=== PATIENT | female | born 1995 | race Caucasian/White ===

== ENCOUNTER 2018-11-25 07:14 | Emergency (ER) | payer SELFPAY ==
--- OUTSIDE RECORDS SUMMARY | 2018-11-25 07:23 | XMS REPORT ---
:1995 [facility] Address [address] [place] [address] Dr. Chavez. [address] [place] [id number] Care Team Providers Name Role Phone Unavailable Unavailable Unavailable Problems This patient has no known problems. Allergies, Adverse Reactions, Alerts This patient has no known allergies or adverse reactions. Medications This patient has no known medications.
--- NOTE | 2018-11-25 07:35 | ER ---
Nurse's Notes [facility] Name: Delmy Lorenzo Age: 23 yrs Sex: Female : 1995 Arrival Date: 11/25/2018 Time: 07:17 Bed 19 Private MD: Diagnosis: Rash and other nonspecific skin eruption Presentation: 11/25 07:26 Presenting complaint: Patient states: itchy rash on stomach, chest and left arm that em started 2 weeks after playing with wild pigs, also reports being 4 and half months . Transition of care: patient was not received from another setting of care. Onset of symptoms was November 11, 2018. Risk Assessment: Do you want to hurt yourself or someone else? Patient reports no desire to harm self or others. Initial Sepsis Screen: Does the patient meet any 2 criteria? No. Patient's initial sepsis screen is negative. Does the patient have a suspected source of infection? No. Patient's initial sepsis screen is negative. Care prior to arrival: None. 07:26 Method Of Arrival: Ambulatory em 07:31 Acuity: SVETA 5 iw Historical: - Allergies: 07:29 NKDA; em - Home Meds: 07:29 None [Active]; em - PMHx: 07:29 None; em - PSHx: 07:29 None; em - Immunization history:: Adult Immunizations up to date. - Social history:: Smoking status: Patient/guardian denies using tobacco. - Ebola Screening: : Patient negative for fever greater than or equal to 101.5 degrees Fahrenheit, and additional compatible Ebola Virus Disease symptoms Patient denies exposure to infectious person Patient denies travel to an Ebola-affected area in the 21 days before illness onset No symptoms or risks identified at this time. Screenin:30 Abuse screen: Denies threats or abuse. Nutritional screening: No deficits noted. em Tuberculosis screening: No symptoms or risk factors identified. Fall Risk None identified. Assessment: 07:29 General: Appears in no apparent distress. comfortable, Behavior is calm, cooperative, em Denies fever. Pain: Denies pain. Neuro: Level of Consciousness is awake, alert, obeys commands, Oriented to person, place, time, situation. Cardiovascular: Capillary refill < 3 seconds Patient's skin is warm and dry. Respiratory: Airway is patent Respiratory effort is even, unlabored, Respiratory pattern is regular, symmetrical. GI: Abdomen is flat, Patient currently denies nausea, vomiting. Derm: Skin is intact, is healthy with good turgor, Rash noted that is macular, itchy, on left arm and abdomen. Musculoskeletal: Capillary refill < 3 seconds, Range of motion: intact in all extremities. Vital Signs: 07:29 BP 102 / 78; Pulse 74; Resp 16; Pulse Ox 100% on R/A; Weight 51.71 kg; Height 5 ft. 1 em in. (154.94 cm); Pain 0/10; 07:29 Body Mass Index 21.54 (51.71 kg, 154.94 cm) em ED Course: 07:17 Patient arrived in ED. as 07:20 Darian Presley MD is Attending Physician. 07:26 Kenji Holm LVN is Primary Nurse. em 07:29 Arm band placed on. em 07:30 Patient has correct armband on for positive identification. Bed in low position. Call em light in reach. 07:31 Triage completed. iw 07:46 No provider procedures requiring assistance completed. Patient did not have IV access em during this emergency room visit. Administered Medications: No medications were administered Outcome: 07:34 Discharge ordered by . gs 07:46 Discharged to home ambulatory. em 07:46 Condition: good 07:46 Discharge instructions given to patient, Instructed on discharge instructions, follow up and referral plans. medication usage, Demonstrated understanding of instructions, follow-up care, medications, Prescriptions given X 1. 07:48 Patient left the ED. em Signatures: Kenji Holm LVN LVN em Patrizia Beavers as Melanie aSlazar, YO RN Darian Presley MD MD
--- NOTE | 2018-11-25 07:36 | EDPHYS ---
Physician Documentation [facility] Name: Delmy Lorenzo Age: 23 yrs Sex: Female : 1995 Arrival Date: 11/25/2018 Time: 07:17 Bed 19 Private MD: ED Physician Darian Presley HPI: 11/25 07:32 This 23 yrs old Female presents to ER via Ambulatory with complaints of Rash. gs 07:32 The rash is located on the body diffusely. The rash can be described as papular, gs urticarial. Onset: The symptoms/episode began/occurred 2 week(s) ago. Associated signs and symptoms: Pertinent positives: itching, Pertinent negatives: fever, nausea. Severity of symptoms: At their worst the symptoms were moderate in the emergency department the symptoms have improved mildly. The patient has experienced a previous episode. Historical: - Allergies: 07:29 NKDA; em - Home Meds: 07:29 None [Active]; em - PMHx: :29 None; em - PSHx: 07:29 None; em - Immunization history:: Adult Immunizations up to date. - Social history:: Smoking status: Patient/guardian denies using tobacco. - Ebola Screening: : Patient negative for fever greater than or equal to 101.5 degrees Fahrenheit, and additional compatible Ebola Virus Disease symptoms Patient denies exposure to infectious person Patient denies travel to an Ebola-affected area in the 21 days before illness onset No symptoms or risks identified at this time. ROS: 07:32 All other systems are negative. gs Exam: 07:32 Head/Face: Normocephalic, atraumatic. Eyes: Pupils equal round and reactive to light, gs extra-ocular motions intact. Lids and lashes normal. Conjunctiva and sclera are non-icteric and not injected. Cornea within normal limits. Periorbital areas with no swelling, redness, or edema. ENT: Nares patent. No nasal discharge, no septal abnormalities noted. Tympanic membranes are normal and external auditory canals are clear. Oropharynx with no redness, swelling, or masses, exudates, or evidence of obstruction, uvula midline. Mucous membranes moist. Neck: Trachea midline, no thyromegaly or masses palpated, and no cervical lymphadenopathy. Supple, full range of motion without nuchal rigidity, or vertebral point tenderness. No Meningismus. Chest/axilla: Normal chest wall appearance and motion. Nontender with no deformity. No lesions are appreciated. Cardiovascular: Regular rate and rhythm with a normal S1 and S2. No gallops, murmurs, or rubs. Normal PMI, no JVD. No pulse deficits. Respiratory: Lungs have equal breath sounds bilaterally, clear to auscultation and percussion. No rales, rhonchi or wheezes noted. No increased work of breathing, no retractions or nasal flaring. Abdomen/GI: Soft, non-tender, with normal bowel sounds. No distension or tympany. No guarding or rebound. No evidence of tenderness throughout. Back: No spinal tenderness. No costovertebral tenderness. Full range of motion. MS/ Extremity: Pulses equal, no cyanosis. Neurovascular intact. Full, normal range of motion. Neuro: Awake and alert, GCS 15, oriented to person, place, time, and situation. Cranial nerves II-XII grossly intact. Motor strength 5/5 in all extremities. Sensory grossly intact. Cerebellar exam normal. Normal gait. 07:32 Constitutional: The patient appears alert, awake. 07:32 Skin: rash a mild rash is noted, rash can be described as papular, on the abdomen, right arm and left arm. Vital Signs: 07:29 BP 102 / 78; Pulse 74; Resp 16; Pulse Ox 100% on R/A; Weight 51.71 kg; Height 5 ft. 1 em in. (154.94 cm); Pain 0/10; 07:29 Body Mass Index 21.54 (51.71 kg, 154.94 cm) em MDM: 07:32 Patient medically screened. 07:32 Differential diagnosis: allergic reaction. Data reviewed: vital signs, nurses notes. gs Counseling: I had a detailed discussion with the patient and/or guardian regarding: the historical points, exam findings, and any diagnostic results supporting the discharge/admit diagnosis, the need for outpatient follow up. Response to treatment: There is no appreciated change of the patient's symptoms at this time. Administered Medications: No medications were administered Disposition: 11/25/18 07:34 Discharged to Home. Impression: Rash and other nonspecific skin eruption. - Condition is Stable. - Discharge Instructions: Rash, [id number]. - Prescriptions for Benadryl 25 mg Oral Capsule - take 1 capsule by ORAL route every 6 hours As needed; 30 tablet. - Medication Reconciliation Form, Thank You Letter, Antibiotic Education, Prescription Opioid Use form. - Follow up: Private Physician; When: 2 - 3 days; Reason: Re-evaluation by your physician. Signatures: Kenji Holm LVN LVN em Starr, Gregory, MD MD gs Corrections: (The following items were deleted from the chart) 07:48 07:34 11/25/2018 07:34 Discharged to Home. Impression: Rash and other nonspecific skin em eruption. Condition is Stable. Forms are Medication Reconciliation Form, Thank You Letter, Antibiotic Education, Prescription Opioid Use. Follow up: Private Physician; When: 2 - 3 days; Reason: Re-evaluation by your physician. gs
[2018-11-25 07:54] VITALS: BP 102/78; O2SAT 100
== END 2018-11-25 07:48 | disposition home or self-care (01) ==
LOC: ER 07:14
DX: R21 Rash and other nonspecific skin eruption (principal)
CPT/HCPCS: 99281

== ENCOUNTER 2019-05-11 08:22 | Emergency (ER) | payer OTHER, SELFPAY ==
--- OUTSIDE RECORDS SUMMARY | 2019-05-11 08:24 | XMS REPORT ---
:1995 [facility] Address [address] [place] [address] Dr. Chavez[address] [place] [address] Care Team Providers Name Role Phone Unavailable Unavailable Unavailable Problems This patient has no known problems. Allergies, Adverse Reactions, Alerts This patient has no known allergies or adverse reactions. Medications This patient has no known medications.
[2019-05-11 10:11] LABS: Absolute Lymphocytes (CBC) 1.5 K/uL (0.7-4.9); Basophils % 0.9 % (0-1.3); Hematocrit 37.3 % (36.0-45.0); Lymphocytes % 26.6 % (15.3-44.8); MPV 7.9 fL (7.6-11.3); RBC Red Blood Cell Count 4.16 M/uL (3.86-4.86)
[2019-05-11 10:28] LABS: ALT/SGPT 25 U/L (12-78); AST/SGOT 17 U/L (15-37); Albumin 3.9 g/dL (3.4-5.0); Alkaline Phosphatase 58 U/L (45-117); BUN Blood Urea Nitrogen 14 mg/dL (7-18); Bicarbonate 27 mmol/L (21-32); Bilirubin Direct 0.1 mg/dL (0-0.2); Bilirubin Total 0.5 mg/dL (0.2-1.0); Glucose Level 109 mg/dL (74-106); Lipase 153 U/L (73-393); Potassium 3.7 mmol/L (3.5-5.1); Protein, Total 7.2 g/dL (6.4-8.2); Sodium Level 140 mmol/L (136-145)
[2019-05-11 10:53] LABS: Urine Blood NEGATIVE (NEG); Urine Glucose NEGATIVE (NEG); Urine Protein NEGATIVE (NEG); Urine Specific Gravity 1.025 (1.005-1.030); Urine pH 6.5 (5.0-7.0)
--- NOTE | 2019-05-11 12:09 | RAD REPORT ---
EXAM DESCRIPTION: CT - Abdomen Pelvis W Contrast - 05/11/2019 11:51 am CLINICAL HISTORY: Abdominal pain COMPARISON: 2015 TECHNIQUE: Computed axial tomography of the abdomen pelvis was obtained. 100 cc Isovue-300 was admin istered intravenously. Oral contrast was not requested which limits evaluation of bowel. All CT scans are performed using dose optimization technique as appropriate and may include automated exposure control or mA/KV adjustment according to patient size. FINDINGS: The liver, spleen, pancreas, adrenal and kidneys appear unremarkable. There is no evidence of diverticulitis. Normal appendix 25 millimeter right ovarian cyst without significant free fluid IMPRESSION: 25 millimeter right ovarian cyst without significant free fluid .
--- NOTE | 2019-05-11 12:25 | ER ---
Nurse's Notes [facility] Name: Delmy Lorenzo Age: 23 yrs Sex: Female : 1995 Arrival Date: 05/11/2019 Time: 08:25 Bed 16 Private MD: Diagnosis: Abdominal and pelvic pain;Left Flank Pain;Right Ovarian cyst Presentation: 05/11 08:40 Presenting complaint: Patient states: L low back pain that began 4 days ago as an ache ss and is now hurting worse. No known injury. Pain is worse with repositioning. Transition of care: patient was not received from another setting of care. Onset of symptoms was May 05, 2019. Risk Assessment: Do you want to hurt yourself or someone else? Patient reports no desire to harm self or others. Initial Sepsis Screen: Does the patient meet any 2 criteria? No. Patient's initial sepsis screen is negative. Does the patient have a suspected source of infection? No. Patient's initial sepsis screen is negative. Care prior to arrival: None. 08:40 Method Of Arrival: Ambulatory ss 08:40 Acuity: SVETA 4 ss Triage Assessment: 08:40 General: Appears in no apparent distress. uncomfortable, slender, Behavior is bp cooperative, appropriate for age, anxious. Pain: Complains of pain in back. EENT: No deficits noted. Neuro: No deficits noted. Cardiovascular: No deficits noted. Respiratory: No deficits noted. GI: No signs and/or symptoms were reported involving the gastrointestinal system. : No signs and/or symptoms were reported regarding the genitourinary system. Derm: No deficits noted. Musculoskeletal: Circulation, motion, and sensation intact. Range of motion: intact in all extremities. 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 - Social history:: Smoking status: Patient uses tobacco products, denies chronic smoking, but will smoke occasionally. - Ebola Screening: : Patient denies exposure to infectious person Patient denies travel to an Ebola-affected area in the 21 days before illness onset. Screenin:04 Abuse screen: Denies threats or abuse. Denies injuries from another. Nutritional bp screening: No deficits noted. Tuberculosis screening: No symptoms or risk factors identified. Fall Risk None identified. Assessment: 10:04 General: SEE TRIAGE NOTE. Neuro: No deficits noted. bp 11:09 Reassessment: CT PENDING, NO ACUTE S/S OF DISTRESS. bp 11:44 Reassessment: PT TO CT WITH STONE SPREADER OPERATOR. bp 13:01 Reassessment: PT D/C HOME AMBULATORY, DX WITH MUSCULOSKELETAL PAIN AND R OVARIAN CYST. bp Vital Signs: 08:42 BP 121 / 85; Pulse 73; Resp 15; Temp 97.8(TE); Pulse Ox 100% on R/A; Weight 49.9 kg; ss Height 5 ft. 2 in. (157.48 cm); Pain 0/10; 11:08 BP 104 / 68; Pulse 88; Resp 16; Pulse Ox 98% ; bp 13:01 BP 99 / 62; Pulse 58; Resp 16; Temp 98; Pulse Ox 100% ; bp 08:42 Body Mass Index 20.12 (49.90 kg, 157.48 cm) ED Course: 08:25 Patient arrived in ED. rg4 08:42 Triage completed. ss 08:42 Arm band placed on right wrist. ss 09:30 Chandrakant Cai MD is Attending Physician. kdr 09:33 Indio Alves, YO is Primary Nurse. bp 09:59 Initial lab(s) drawn, by ri, sent to lab. Inserted saline lock: 20 gauge in right em1 antecubital area, using aseptic technique. Blood collected. 10:04 Patient has correct armband on for positive identification. Bed in low position. Call bp light in reach. Side rails up X2. 11:59 CT Abd/Pelvis - IV Contrast Only In Process Unspecified. EDMS 13:01 No provider procedures requiring assistance completed. IV discontinued, intact, bp bleeding controlled, No redness/swelling at site. Pressure dressing applied. Administered Medications: No medications were administered Outcome: 12:22 Discharge ordered by . kdr 13:01 Discharged to home ambulatory. bp 13:01 Condition: stable 13:01 Discharge instructions given to patient, Instructed on discharge instructions, follow up and referral plans. medication usage, Demonstrated understanding of instructions, follow-up care, medications, Prescriptions given X 2. 13:03 Patient left the ED. bp Signatures: Dispatcher [employer] EDMS Chandrakant Cai MD MD kdr Martinez, Eric em1 Darlene Renae, YO RN Essence Tidwell 4 Indio Alves, YO RN bp
--- NOTE | 2019-05-11 12:25 | EDPHYS ---
Physician Documentation [facility] Name: Delmy Lorenzo Age: 23 yrs Sex: Female : 1995 Arrival Date: 05/11/2019 Time: 08:25 Bed 16 Private MD: ED Physician Chandrakant Cai HPI: 05/11 15:16 This 23 yrs old Female presents to ER via Ambulatory with complaints of Back kdr Pain. 15:16 The symptoms are located in the low back, low back area and left low back. Onset: The kdr symptoms/episode began/occurred gradually, 4 day(s) ago. The pain does not radiate. Associated signs and symptoms: Pertinent positives: Pertinent negatives: abdominal pain, dysuria, fever, headache, hematuria, incontinence, nausea, numbness, tingling, urinary retention, vomiting, weakness. The problem was sustained from unknown cause. Modifying factors: The patient symptoms are alleviated by nothing, the patient symptoms are aggravated by coughing, lifting, movement, nothing, running out of pain medications. Severity of symptoms: At their worst the symptoms were mild, in the emergency department the symptoms are unchanged. The patient has experienced a previous episode. The patient has not recently seen a physician. 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 - Social history:: Smoking status: Patient uses tobacco products, denies chronic smoking, but will smoke occasionally. - Ebola Screening: : Patient denies exposure to infectious person Patient denies travel to an Ebola-affected area in the 21 days before illness onset. ROS: 15:16 Constitutional: Negative for fever, chills, and weight loss, Eyes: Negative for injury, kdr pain, redness, and discharge, ENT: Negative for injury, pain, and discharge, Neck: Negative for injury, pain, and swelling, Cardiovascular: Negative for chest pain, palpitations, and edema, Respiratory: Negative for shortness of breath, cough, wheezing, and pleuritic chest pain, Abdomen/GI: Negative for abdominal pain, nausea, vomiting, diarrhea, and constipation, : Negative for injury, bleeding, discharge, and swelling, MS/Extremity: Negative for injury and deformity, Skin: Negative for injury, rash, and discoloration, Neuro: Negative for headache, weakness, numbness, tingling, and seizure activity. Psych: Negative for depression, anxiety, suicide ideation, homicidal ideation, and hallucinations, Allergy/Immunology: Negative for hives, rash, and allergies, Endocrine: Negative for neck swelling, polydipsia, polyuria, polyphagia, and marked weight changes, Hematologic/Lymphatic: Negative for swollen nodes, abnormal bleeding, and unusual bruising. 15:16 Back: Positive for pain with movement, radiated pain, of the left low back, Negative for pain at rest. Exam: 15:16 Constitutional: This is a well developed, well nourished patient who is awake, alert, kdr and in no acute distress. Head/Face: Normocephalic, atraumatic. Eyes: Pupils equal round and reactive to light, extra-ocular motions intact. Lids and lashes normal. Conjunctiva and sclera are non-icteric and not injected. Cornea within normal limits. Periorbital areas with no swelling, redness, or edema. Neck: Trachea midline, no thyromegaly or masses palpated, and no cervical lymphadenopathy. Supple, full range of motion without nuchal rigidity, or vertebral point tenderness. No Meningismus. Chest/axilla: Normal chest wall appearance and motion. Nontender with no deformity. No lesions are appreciated. Cardiovascular: Regular rate and rhythm with a normal S1 and S2. No gallops, murmurs, or rubs. Normal PMI, no JVD. No pulse deficits. Respiratory: Lungs have equal breath sounds bilaterally, clear to auscultation and percussion. No rales, rhonchi or wheezes noted. No increased work of breathing, no retractions or nasal flaring. Abdomen/GI: Soft, non-tender, with normal bowel sounds. No distension or tympany. No guarding or rebound. No evidence of tenderness throughout. Back: No spinal tenderness. No costovertebral tenderness. Full range of motion. Skin: Warm, dry with normal turgor. Normal color with no rashes, no lesions, and no evidence of cellulitis. MS/ Extremity: Pulses equal, no cyanosis. Neurovascular intact. Full, normal range of motion. Neuro: Awake and alert, GCS 15, oriented to person, place, time, and situation. Cranial nerves II-XII grossly intact. Motor strength 5/5 in all extremities. Sensory grossly intact. Cerebellar exam normal. Normal gait. Psych: Awake, alert, with orientation to person, place and time. Behavior, mood, and affect are within normal limits. Vital Signs: 08:42 BP 121 / 85; Pulse 73; Resp 15; Temp 97.8(TE); Pulse Ox 100% on R/A; Weight 49.9 kg; ss Height 5 ft. 2 in. (157.48 cm); Pain 0/10; 11:08 BP 104 / 68; Pulse 88; Resp 16; Pulse Ox 98% ; bp 13:01 BP 99 / 62; Pulse 58; Resp 16; Temp 98; Pulse Ox 100% ; bp 08:42 Body Mass Index 20.12 (49.90 kg, 157.48 cm) ss MDM: 12:22 Patient medically screened. kdr 15:16 Data reviewed: vital signs, nurses notes, lab test result(s), radiologic studies. kdr Counseling: I had a detailed discussion with the patient and/or guardian regarding: the historical points, exam findings, and any diagnostic results supporting the discharge/admit diagnosis, lab results, radiology results, the need for outpatient follow up. 05/11 09:44 Order name: Basic Metabolic Panel; Complete Time: 10:47 kdr 05/11 09:44 Order name: CBC with Diff; Complete Time: 10:47 kdr 05/11 09:44 Order name: Creatinine for Radiology; Complete Time: 10:47 kdr 05/11 09:44 Order name: Hepatic Function; Complete Time: 10:47 kdr 05/11 09:44 Order name: Lipase; Complete Time: 10:47 kdr 05/11 09:48 Order name: Urine Dipstick--Ancillary (enter results); Complete Time: 11:32 eb 05/11 09:44 Order name: IV Saline Lock; Complete Time: 09:59 kdr 05/11 09:44 Order name: Labs collected and sent; Complete Time: 09:59 kdr 05/11 09:44 Order name: CT Abd/Pelvis - IV Contrast Only kdr 05/11 09:44 Order name: Urine Dipstick-Ancillary (obtain specimen); Complete Time: 09:59 kdr 05/11 09:44 Order name: Urine Test (obtain specimen); Complete Time: 09:59 kdr 05/11 09:48 Order name: Urine --Ancillary (enter results); Complete Time: 11:32 eb Administered Medications: No medications were administered Disposition: 05/11/19 12:22 Discharged to Home. Impression: Abdominal and pelvic pain, Left Flank Pain, Right Ovarian cyst. - Condition is Stable. - Discharge Instructions: Musculoskeletal Pain, Abdominal Pain, Adult, [id number], Flank Pain, [id number]. - Prescriptions for Cyclobenzaprine 10 mg Oral Tablet - take 1 tablet by ORAL route every 8 hours As needed; 15 tablet. Tramadol 50 mg Oral Tablet - take 1 tablet by ORAL route every 8 hours as needed; 16 tablet. - Medication Reconciliation Form, Thank You Letter, Prescription Opioid Use form. - Follow up: Private Physician; When: 2 - 3 days; Reason: If symptoms return, Further diagnostic work-up, Recheck today's complaints, Continuance of care, Re-evaluation by your physician. - Problem is new. - Symptoms have improved. Signatures: Dispatcher [employer] EDMS Chandrakant Cai MD MD kdr Darlene Renae RN RN ss Indio Alves RN RN bp Corrections: (The following items were deleted from the chart) 13:03 12:22 05/11/2019 12:22 Discharged to Home. Impression: Abdominal and pelvic pain; Left bp Flank Pain; Right Ovarian cyst. Condition is Stable. Forms are Medication Reconciliation Form, Thank You Letter, Antibiotic Education, Prescription Opioid Use. Follow up: Private Physician; When: 2 - 3 days; Reason: If symptoms return, Further diagnostic work-up, Recheck today's complaints, Continuance of care, Re-evaluation by your physician. Problem is new. Symptoms have improved. kdr
[2019-05-11 13:19] VITALS: BP 99/62; TEMP 98; O2SAT 100
== END 2019-05-11 13:03 | disposition home or self-care (01) ==
LOC: ER 08:22
DX: N83.201 Unspecified ovarian cyst, right side (principal); R10.9 Unspecified abdominal pain; Z72.0 Tobacco use
CPT/HCPCS: 36415; 74177; 80048; 80076; 81003; 81025; 83690; 85025; 99284; Q9967

== ENCOUNTER 2020-03-10 15:37 | Emergency (ER) | payer OTHER, SELFPAY ==
--- OUTSIDE RECORDS SUMMARY | 2020-03-10 15:39 | XMS REPORT | Continuity of Care Document ---
:[address] [facility] Address [address] [place] [address] Dr. Ha [address] [place] [id number] Care Team Providers Name Role Phone Unavailable Unavailable Unavailable Problems This patient has no known problems. Allergies, Adverse Reactions, Alerts This patient has no known allergies or adverse reactions. Medications This patient has no known medications. Procedures This patient has no known procedures. Results This patient has no known results.
[2020-03-10 16:40] LABS: Urine Blood NEGATIVE (NEG); Urine Glucose NEGATIVE (NEG); Urine Protein TRACE (NEG)
--- NOTE | 2020-03-10 16:47 | RAD REPORT ---
EXAM DESCRIPTION: CT - Head Brain Wo Cont - 03/10/2020 4:16 pm CLINICAL HISTORY: TRAUMA COMPARISON: Facial Bones W/ Mpr dated 03/10/2020 TECHNIQUE: Axial 5 mm thick images of the head were obtained without IV contrast. All CT scans are performed using dose optimization technique as appropriate and may include automated exposure control or mA/KV adjustment according to patient size. FINDINGS: No intracranial hemorrhage, mass, edema or shift of mid-line structures. No acute infarcti on changes seen. No abnormal extra-axial fluid collections. Ventricles are normal. Mastoid air cells are clear peer No acute bony findings. IMPRESSION: Negative non-contrast CT head examination. Facial bones, orbits and sinuses are separately detailed appear
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
--- NOTE | 2020-03-10 16:53 | RAD REPORT ---
EXAM DESCRIPTION: RAD - Hand Right 3 View - 03/10/2020 4:25 pm CLINICAL HISTORY: PAIN COMPARISON: Hand Right 3 View dated 10/13/2013 FINDINGS: No fracture is identified. There is no dislocation or periosteal reaction noted. No forei gn body or significant soft tissue abnormality. The glue on nail is missing from the digit. IMPRESSION: Negative right hand examination for fracture or significant finding. .
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
[2020-03-10 19:59] VITALS: TEMP 98
[2020-03-10 20:00] VITALS: O2SAT 99
[2020-03-10 20:05] VITALS: BP 129/99
== END 2020-03-10 19:41 | disposition home or self-care (01) ==
LOC: ER 15:37
PROC: 0NSBXZZ Reposition Nasal Bone, External Approach (ICD-10-PCS; principal; 2020-03-10)
DX: O9A.219 Injury, poisoning and certain other consequences of external causes complicating pregnancy, unspecified trimester (principal); S02.2XXA Fracture of nasal bones, initial encounter for closed fracture; Z3A.00 Weeks of gestation of pregnancy not specified; Y04.2XXA Assault by strike against or bumped into by another person, initial encounter; Y93.9 Activity, unspecified; Y92.89 Other specified places as the place of occurrence of the external cause
CPT/HCPCS: 36415; 70450; 70486; 76377; 81003; 81025; 84703; 99284

== ENCOUNTER 2020-11-06 00:37 | Inpatient (IN) | payer OTHER ==
[2020-11-06] MEDS ORDERED: PROMETHAZINE INJ 25 MG/ML AMP IM PRN (04:14)
[2020-11-06] MEDS ORDERED: BUTORPHANOL 1 MG/ML INJ IV PRN (04:14)
[2020-11-06] MEDS ORDERED: CARBOPROST TROME 250 MCG/ML IM PRN (04:14)
[2020-11-06] MEDS ORDERED: Ringers Lactate 1,000 ML IV PRN (04:14)
[2020-11-06] MEDS ORDERED: MEPERIDINE HCL 25 MG/ML SYR IV PRN (04:14)
[2020-11-06] MEDS ORDERED: METHYLERGONOVINE 0.2MG/ML AMP IM PRN (04:14)
--- OUTSIDE RECORDS SUMMARY | 2020-11-06 04:16 | XMS REPORT | Continuity of Care Document ---
:1995 Author Organization [facility] t Address [address] [place] [address] Dr. Ha [address] [place] [id number] Care Team Providers Name Role Phone Unavailable Unavailable Unavailable Problems This patient has no known problems. Allergies, Adverse Reactions, Alerts This patient has no known allergies or adverse reactions. Medications This patient has no known medications. Procedures This patient has no known procedures. Results This patient has no known results.
[2020-11-06] MEDS ORDERED: Ringers Lactate 1,000 ML IV SCH (05:00)
[2020-11-06] MEDS ORDERED: OXYTOCIN/LR 20 UNIT/1,000 ML BAG IV SCH ×2 (05:00→14:00)
[2020-11-06 05:09] LABS: Absolute Lymphocytes (CBC) 2.1 K/uL (0.7-4.9); Basophils % 0.5 % (0-1.3); Hematocrit 30.2 % (36.0-45.0); Lymphocytes % 19.1 % (15.3-44.8)
[2020-11-06 05:10] LABS: Urine Appearance CLOUDY (Clear); Urine Bilirubin NEGATIVE (Negative); Urine Blood NEGATIVE (Negative); Urine Color YELLOW (Yellow); Urine Glucose NEGATIVE (Negative); Urine Protein TRACE (Negative); Urine Specific Gravity 1.015 (1.005-1.030)
[2020-11-06 05:26] LABS: Urine Bacteria >50 /HPF (<20); Urine RBC NONE SEEN /HPF (NONE SEEN); Urine Urothelial Cells <5 /HPF (NONE SEEN)
[2020-11-06 05:54] VITALS: BMI 25.0
[2020-11-06] MEDS ORDERED: MAGNES/ALUMIN/SIMET 30ML UCUP PO PRN (07:02)
[2020-11-06] MEDS ORDERED: ROPIVACAINE HCL 0.2% 20ML AMP EP ONE (09:35)
[2020-11-06] MEDS ORDERED: FENTANYL CITR 100 MCG/2 ML IV ONE (09:35)
[2020-11-06] MEDS ORDERED: ROPIVACAINE HCL 100 ML EP ONE (10:51)
[2020-11-06] MEDS ORDERED: LIDOCAINE 1% 20 ML MDV ONE (11:07)
[2020-11-06] MEDS ORDERED: METHYLERGONOVINE 0.2MG/ML AMP IM ONE (11:09)
--- NOTE | 2020-11-06 11:36 | PREOPHP ---
Date of Admission: 11/06/2020 History Of Present Illness: Delmy Lorenzo is a 25-year-old primigravida, 39 weeks, Rh positive, immune to rubella. Negative COVID and negative strep, for induction. Pros and cons of this thoroughly dis cussed prior to admission. Family History: Not contributory. Allergies: SHE HAS NO ALLERGIES. Social History: She does not smoke. Medications: vitamins and iron prior to admission. Physical Examination: HEENT: Clear. Pupils equal, round, reactive to light and accommodation. Conjunctivae well perfused . No oral, lingual, or buccal lesions. Chest and Lung: Clear. Heart: Without murmurs, thrills, heaves, or rubs. Breasts: Without masses on previous visits. Abdomen: Term size. Baby is vertex. She is 2.5 cm, 50% effaced, still somewhat posterior. Rupture of membranes, clear f luid. Labor talk given. Baby looks good on the monitor. Anticipate more rapid progress once she ge ts to 5 cm. Full labor talk given. GILBERT/ALEXANDRE Voice ID: [id number]
[2020-11-06] MEDS ORDERED: DOCUSATE NA/SENNA CONC 1 TAB PO PRN (13:47)
[2020-11-06] MEDS ORDERED: Oxycodone HCl/Acetaminophen 1 TAB TAB PO PRN ×2 (13:47)
[2020-11-06] MEDS ORDERED: DIPHENHYDRAMINE 25 MG TAB/CAP PO PRN (13:47)
[2020-11-06] MEDS ORDERED: BISACODYL 10 MG RECTAL SUPP PR PRN (13:47)
[2020-11-06] MEDS ORDERED: ACETAMINOPHEN 500 MG TAB PO PRN (13:47)
[2020-11-06] MEDS ORDERED: CEFAZOLIN/SWI 2gm 2 GM/20 ML SYR ONE (14:05)
[2020-11-06] MEDS: METHYLERGONOVINE 0.2 MG TAB PO SCH ×3 (15:10→23:00)
[2020-11-06] MEDS: IBUPROFEN 600 MG TAB PO PRN ×2 (15:20→22:28)
[2020-11-06] MEDS ORDERED: METHYLERGONOVINE 0.2 MG TAB PO ONE (15:26)
--- NOTE | 2020-11-06 18:43 | PN ---
I evaluated this morning. The patient is now 4.5 cm, 70%. Cervix has come more anterior. She has e pidural and feeling quite comfortable at this point. Baby looks good. I think we are on the verge o f making more rapid progress from this point forward. GILBERT/ALEXANDRE Voice ID: [id number] Report ID: [id number]
--- NOTE | 2020-11-06 21:33 | OP ---
Surgeon: Niko Jackson MD Delmy Lorenzo is a 25-year-old 3, para 2, 39 weeks gestation, Rh positive, immune to rube lla, negative COVID, negative strep, 2.5 to 3 cm this morning on admission, elective induction. Pros and cons of this thoroughly discussed prior to admission. Rupture of membranes, clear fluid. The p atient received Stadol IV during the first stage of labor at approximately 4-5 cm requested and recei renee epidural anesthesia. Second stage of about 15 to 20 minutes. Spontaneous vaginal delivery of an 8 pounds male infant, Apgars 9 and 9. No episiotomy. No laceration. Retained placenta, which star cehri bleeding significantly. Therefore, manual removal was performed. The placenta was removed piece meal. Thorough uterine inspection. No retained products after final removal. 0.2 mg of Methergine IM, IV drip Pitocin, and 1 g of Ancef ordered for prophylaxis. Tolerated all procedures well. Estim ated blood loss 350 to 400 cc. Final Diagnoses: Term intrauterine at 39 weeks, labor induction, vaginal delivery, epidura l anesthesia, retained placenta, manual removal. Ancef for prophylaxis ordered. GILBERT/ALEXANDRE Voice ID: [id number] Report ID: [id number]
[2020-11-07] MEDS: METHYLERGONOVINE 0.2 MG TAB PO SCH (03:00)
[2020-11-07 03:42] LABS: RPR (Rapid Plasma Reagin) NON-REACT (NON-REACT)
[2020-11-07] MEDS ORDERED: Ringers Lactate 1,000 ML IV ONE (04:25)
[2020-11-07 11:57] VITALS: BP 120/65; TEMP 97.7
[2020-11-07] MEDS: IBUPROFEN 600 MG TAB PO PRN (15:05)
--- NOTE | 2020-11-07 21:34 | DS ---
Date of Discharge: 11/07/2020 Delmy Lorenzo is a 25-year-old female, 3, para 2, 39 weeks gestation, delivered an 8 pounds mal e , Apgars 9 and 9, epidural anesthesia, retained placenta removed manually, mild uterine hypot onus, 0.2 mg of Methergine IM as well as IV drip Pitocin, 350 to 400 cc blood loss. 1 g of Ancef giv en for prophylaxis. The patient is Rh positive, immune to rubella negative. Negative COVID and nega tive strep. is afebrile, ambulating and voiding. Lochia is normal. She will be dismisse d later today to report back to my office in 6 weeks or followup to report any temperature elevation of 100 degrees or greater, severe pain, heavy bleeding, or any other type of abnormalities. She has been advised to get her Tdap immunization during the and again today. No post epidural pro blems. Final Diagnoses: Term intrauterine , vaginal delivery, retained placenta with manual remova l. Ancef for prophylaxis. Tdap offered. GILBERT/ALEXANDRE Voice ID: [id number] Report ID: [id number]
[2020-11-08 22:00] LABS: HBsAG Nonreactive (Nonreactive)
== END 2020-11-07 17:28 | disposition home or self-care (01) | DRG 807 ==
LOC: 2ND-WC 04:13
PROVIDERS: ADMIT Specialist; ATTEND Specialist
PROC: 10E0XZZ Delivery of Products of Conception, External Approach (ICD-10-PCS; principal; 2020-11-06)
PROC: 10D17Z9 Manual Extraction of Products of Conception, Retained, Via Natural or Artificial Opening (ICD-10-PCS; 2020-11-06)
PROC: 10907ZC Drainage of Amniotic Fluid, Therapeutic from Products of Conception, Via Natural or Artificial Opening (ICD-10-PCS; 2020-11-06)
PROC: 3E033VJ Introduction of Other Hormone into Peripheral Vein, Percutaneous Approach (ICD-10-PCS; 2020-11-06)
DX: O72.2 Delayed and secondary postpartum hemorrhage (principal); Z37.0 Single live birth; Z3A.39 39 weeks gestation of pregnancy; Z20.822 Contact with and (suspected) exposure to COVID-19
CPT/HCPCS: 36415; 81001; 85025; 86592; 86901; 87086; 87088; 87340; J0595; J0690; J2210; J2550; J2590; J2795; J3010; J7120; U0003

== ENCOUNTER 2021-05-07 18:06 | Emergency (ER) | payer OTHER ==
--- OUTSIDE RECORDS SUMMARY | 2021-05-07 18:09 | XMS REPORT | Continuity of Care Document ---
:1995 Author Organization [facility] t Address [address] [place] [address] Dr. Ha [address] [place] [id number] Care Team Providers Name Role Phone Unavailable Unavailable Unavailable Problems This patient has no known problems. Allergies, Adverse Reactions, Alerts This patient has no known allergies or adverse reactions. Medications This patient has no known medications. Procedures This patient has no known procedures. Results This patient has no known results.
[2021-05-07 19:28] LABS: Urine Blood Negative (Negative); Urine Glucose Negative (Negative); Urine Protein Negative (Negative)
[2021-05-07 20:15] LABS: Urine Bacteria <20 /HPF (<20); Urine RBC <5 /HPF (NONE SEEN)
[2021-05-07 20:34] LABS: Absolute Lymphocytes (CBC) 1.9 K/uL (0.7-4.9); Basophils % 0.5 % (0-1.3); Hematocrit 36.1 % (36.0-45.0); Lymphocytes % 21.6 % (15.3-44.8); MPV 8.2 fL (7.6-11.3); RBC Red Blood Cell Count 4.13 M/uL (3.86-4.86)
[2021-05-07 20:51] LABS: BUN Blood Urea Nitrogen 15 mg/dL (7-18); Bicarbonate 21 mmol/L (21-32); Glucose Level 94 mg/dL (74-106); Potassium 3.7 mmol/L (3.5-5.1); Sodium Level 141 mmol/L (136-145)
[2021-05-07 21:02] LABS: Protime INR 1.06
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
[2021-05-07 22:02] VITALS: BP 120/86; TEMP 97.8; O2SAT 99
== END 2021-05-07 21:53 | disposition home or self-care (01) ==
LOC: ER 18:06
DX: S09.90XA Unspecified injury of head, initial encounter (principal); R10.32 Left lower quadrant pain; V49.40XA Driver injured in collision with unspecified motor vehicles in traffic accident, initial encounter
CPT/HCPCS: 85025; 80048; 36415; 81025; 85610; 85730; 70450; 72125; 74177; 99284; Q9967; 81003; 81015

== ENCOUNTER 2021-09-15 12:53 | Emergency (ER) | payer OTHER ==
--- OUTSIDE RECORDS SUMMARY | 2021-09-15 12:56 | XMS REPORT | Continuity of Care Document ---
:1995 Author Organization [facility] t Address [address] [place] [address] Dr. Ha [address] [place] [id number] Care Team Providers Name Role Phone Unavailable Unavailable Unavailable Problems This patient has no known problems. Allergies, Adverse Reactions, Alerts This patient has no known allergies or adverse reactions. Medications This patient has no known medications. Procedures This patient has no known procedures. Results This patient has no known results.
--- NOTE | 2021-09-15 14:07 | RAD REPORT ---
EXAM DESCRIPTION: RAD - Foot Right 3 View - 09/15/2021 1:53 pm CLINICAL HISTORY: Great toe pain Pain and swelling COMPARISON: No comparisons FINDINGS: Nondisplaced fracture is seen involving the base of the proximal phalanx of the great toe medially. Mild adjacent soft tissue swelling.
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
[2021-09-15 18:49] VITALS: BP 101/70; TEMP 97.7; O2SAT 98
== END 2021-09-15 15:24 | disposition home or self-care (01) ==
LOC: ER 12:53
DX: S92.414A Nondisplaced fracture of proximal phalanx of right great toe, initial encounter for closed fracture (principal)
CPT/HCPCS: 99283

== ENCOUNTER 2021-12-29 09:17 | Emergency (ER) | payer OTHER, SELFPAY ==
[2021-12-29 12:31] VITALS: BP 95/56; TEMP 98.2; O2SAT 98
--- NOTE | 2021-12-31 09:25 | EDPHYS ---
Physician Documentation [facility] Name: Delmy Lorenzo Age: 26 yrs Sex: Female : 1995 Arrival Date: 12/29/2021 Time: 09:21 Bed 22 Private MD: ED Physician Solitario Woody HPI: 12/29 09:24 This 26 yrs old Female presents to ER via Ambulatory with complaints of r/o covid. jmm 09:24 The patient or guardian reports cough. Onset: The symptoms/episode began/occurred jmm gradually, 1 day(s) ago. Modifying factors: The symptoms are alleviated by nothing. the symptoms are aggravated by nothing. Associated signs and symptoms: Pertinent positives:. This is a 26 year old female with no chronic medical conditions that presents to the ED with complaints of cough, headache, congestion beginning yesterday. Multiple family members have similar symptoms. . 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 - Social history:: Smoking status: Patient denies any tobacco usage or history of. ROS: 09:24 Constitutional: Positive for body aches, chills. jmm 09:24 ENT: Positive for sinus congestion, sore throat. 09:24 All other systems are negative. Exam: 09:24 Constitutional: This is a well developed, well nourished patient who is awake, alert, jmm and in no acute distress. Head/Face: atraumatic. Eyes: EOMI, no conjunctival erythema appreciated ENT: Moist Mucus Membranes Neck: Trachea midline, Supple Chest/axilla: Normal chest wall appearance and motion. Cardiovascular: Regular rate and rhythm. No edema appreciated Respiratory: Normal respirations, no respiratory distress appreciated Abdomen/GI: Non distended Back: Normal ROM Skin: General appearance color normal MS/ Extremity: Moves all extremities, no obvious deformities appreciated, no edema noted to the lower extremities Neuro: Awake and alert Psych: Behavior is normal, Mood is normal, Patient is cooperative and pleasant Vital Signs: 09:58 BP 95 / 56; Pulse 71; Resp 14; Temp 98.2; Pulse Ox 98% on R/A; Weight 53.52 kg; Height tp1 5 ft. 1 in. (154.94 cm); Pain 3/10; 09:58 Body Mass Index 22.30 (53.52 kg, 154.94 cm) tp1 MDM: 09:24 Patient medically screened. [facility] 12:11 Data reviewed: vital signs, nurses notes. Counseling: I had a detailed discussion with the [facility] the patient and/or guardian regarding: the historical points, exam findings, and any diagnostic results supporting the discharge/admit diagnosis, lab results, the need for outpatient follow up, to return to the emergency department if symptoms worsen or persist or if there are any questions or concerns that arise at home. 12/29 09:27 Order name: SARS-COV-2 RT PCR (Document "Date of Onset" if Symptomatic); Complete Time: [facility] 12:18 12/29 09:27 Order name: Influenza Screen (a \\T\\ B); Complete Time: 10:50 [facility] Administered Medications: No medications were administered Disposition: 16:15 Co-signature as Attending Physician, Solitario Woody MD. rn Disposition Summary: 12/29/21 12:13 Discharge Ordered Location: Home [facility] Condition: Stable [facility] Diagnosis - Coronavirus infection, unspecified [facility] Followup: [facility] - With: Private Physician - When: 2 - 3 days - Reason: Recheck today's complaints, Continuance of care, Re-evaluation by your physician Discharge Instructions: - Discharge Summary Sheet [facility] - COVID-19 [facility] Forms: - Medication Reconciliation Form [facility] - Thank You Letter [facility] - Antibiotic Education [facility] - Prescription Opioid Use [facility] Signatures: Dispatcher [employer] EDCj Parrish PA PA jmm Nieto, Roman, MD MD rn Parker, Tiffany, RN RN tp1
--- NOTE | 2021-12-31 09:25 | ER ---
Nurse's Notes [facility] Name: Delmy Lorenzo Age: 26 yrs Sex: Female : 1995 Arrival Date: 12/29/2021 Time: 09:21 Bed 22 Private MD: Diagnosis: Coronavirus infection, unspecified Presentation: 12/29 09:58 Chief complaint: Patient states: congestion and headache. congestion started yesterday tp1 morning. aching headache that is continuous started this morning, rated 3/10. requesting rule out COVID. Coronavirus screen: Vaccine status: Patient reports being unvaccinated. Ebola Screen: Patient denies exposure to infectious person. Patient denies travel to an Ebola-affected area in the 21 days before illness onset. Initial Sepsis Screen: Does the patient meet any 2 criteria? No. Patient's initial sepsis screen is negative. Does the patient have a suspected source of infection? No. Patient's initial sepsis screen is negative. Risk Assessment: Do you want to hurt yourself or someone else? Patient reports no desire to harm self or others. Onset of symptoms was December 28, 2021. 09:58 Method Of Arrival: Ambulatory tp1 09:58 Acuity: SVETA 4 tp1 Triage Assessment: 10:02 General: Appears in no apparent distress. comfortable, Behavior is calm, cooperative. tp1 Pain: Complains of pain in forehead Pain does not radiate. Pain currently is 3 out of 10 on a pain scale. Quality of pain is described as aching, Pain began this morning Is continuous. EENT: No signs and/or symptoms were reported regarding the EENT system. Neuro: Level of Consciousness is awake, alert, Oriented to person, place, time, situation. Cardiovascular: Patient's skin is warm and dry. Respiratory: Airway is patent Respiratory effort is even, unlabored. GI: Patient currently denies diarrhea, nausea, vomiting. : No signs and/or symptoms were reported regarding the genitourinary system. Derm: Skin is pink, warm \\T\\ dry. Musculoskeletal: Circulation, motion, and sensation intact. 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 - Social history:: Smoking status: Patient denies any tobacco usage or history of. Screenin:04 Abuse screen: Denies threats or abuse. Nutritional screening: No deficits noted. tp1 Tuberculosis screening: No symptoms or risk factors identified. Fall Risk None identified. Assessment: 10:04 Reassessment: see triage note. tp1 10:42 Reassessment: Patient appears in no apparent distress at this time. No changes from tp1 previously documented assessment. Patient and/or family updated on plan of care and expected duration. Pain level reassessed. Patient is alert, oriented x 3, equal unlabored respirations, skin warm/dry/pink. 11:53 Reassessment: Patient appears in no apparent distress at this time. No changes from tp1 previously documented assessment. Patient and/or family updated on plan of care and expected duration. Pain level reassessed. Patient is alert, oriented x 3, equal unlabored respirations, skin warm/dry/pink. Vital Signs: 09:58 BP 95 / 56; Pulse 71; Resp 14; Temp 98.2; Pulse Ox 98% on R/A; Weight 53.52 kg; Height tp1 5 ft. 1 in. (154.94 cm); Pain 3/10; 09:58 Body Mass Index 22.30 (53.52 kg, 154.94 cm) tp1 ED Course: 09:21 Patient arrived in ED. am2 09:24 [facility] 09:24 Solitario Woody MD is Attending Physician. [facility] 09:29 Eve Guzman, RN is Primary Nurse. vg1 09:39 SARS-COV-2 RT PCR (Document "Date of Onset" if Symptomatic) Sent. ph 09:39 Influenza Screen (a \\T\\ B) Sent. ph 10:02 Triage completed. tp1 10:02 Arm band placed on. tp1 10:04 Bed in low position. Call light in reach. Pulse ox on. NIBP on. tp1 10:06 No provider procedures requiring assistance completed. Patient did not have IV access tp1 during this emergency room visit. 10:07 Primary Nurse role handed off by Eve Guzman RN tp1 10:07 Delmy Dhillon, RN is Primary Nurse. tp1 Administered Medications: No medications were administered Medication: 12:25 VIS not applicable for this client. ap3 Outcome: 12:13 Discharge ordered by MD. onofre 12:25 Discharged to home ambulatory. ap3 12:25 Condition: good 12:25 Discharge instructions given to patient, Instructed on discharge instructions, follow up and referral plans. Demonstrated understanding of instructions, follow-up care. 12:25 Patient left the ED. ap3 Signatures: Cj Castro PA PA jmm Hall, Patricia, RN RN Mariela Oh Amanda, RN RN ap3 Eve Guzman RN RN vg1 Delmy Dhillon, YO RN tp1
== END 2021-12-29 12:25 | disposition home or self-care (01) ==
LOC: ER 09:17
DX: U07.1 COVID-19 (principal)
CPT/HCPCS: 87804; 99283; U0003

== ENCOUNTER 2022-04-25 08:05 | Emergency (ER) | payer OTHER ==
--- OUTSIDE RECORDS SUMMARY | 2022-04-25 08:08 | XMS REPORT | Continuity of Care Document ---
:1995 Author Organization [facility] t Address [address] [place] [address] Dr. Ha [address] [place] [id number] Care Team Providers Name Role Phone Unavailable Unavailable Unavailable Problems This patient has no known problems. Allergies, Adverse Reactions, Alerts This patient has no known allergies or adverse reactions. Medications This patient has no known medications. Procedures This patient has no known procedures. Results This patient has no known results.
--- NOTE | 2022-04-25 08:16 | EDPHYS ---
Physician Documentation [facility] Name: Delmy Lorenzo Age: 26 yrs Sex: Female : 1995 Arrival Date: 04/25/2022 Time: 08:07 Bed IW1 Private MD: ED Physician Medardo Vasques HPI: 04/25 08:25 This 26 yrs old Female presents to ER via Ambulatory with complaints of Ear Pain. ms3 08:25 The patient presents with pain, a " 3" out of "10". The complaints affect the left ear. ms3 Onset: The symptoms/episode began/occurred 3 day(s) ago. Modifying factors: The symptoms are alleviated by ibuprofen, the symptoms are aggravated by nothing. Associated signs and symptoms: Pertinent negatives: cough, fever. Severity of symptoms: At their worst the symptoms were moderate in the emergency department the symptoms are unchanged Pain is currently a 3 / 10. 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 - Social history:: Smoking status: Patient denies any tobacco usage or history of. ROS: 08:25 Constitutional: Negative for fever, and chills. Eyes: Negative for injury, pain, ms3 redness, and discharge. 08:25 MS/Extremity: Negative for injury and deformity, Skin: Negative for injury, rash, and discoloration. 08:25 ENT: Positive for ear pain. 08:25 All other systems are negative. Exam: 08:25 Constitutional: This is a well developed, well nourished patient who is awake, alert, ms3 and in no acute distress. Head/Face: Normocephalic, atraumatic. Neck: Trachea midline, no cervical lymphadenopathy. Supple, full range of motion without nuchal rigidity, or vertebral point tenderness. No Meningismus. Chest/axilla: Normal chest wall appearance and motion. Nontender with no deformity. Cardiovascular: Regular rate and rhythm with a normal S1 and S2. No gallops, murmurs, or rubs. Normal PMI, no JVD. No pulse deficits. Respiratory: Lungs have equal breath sounds bilaterally, clear to auscultation and percussion. No rales, rhonchi or wheezes noted. No increased work of breathing, no retractions or nasal flaring. Abdomen/GI: Soft, non-tender, with normal bowel sounds. No distension or tympany. No guarding or rebound. No evidence of tenderness throughout. Skin: Warm, dry with normal turgor. Normal color with no rashes, no lesions, and no evidence of cellulitis. MS/ Extremity: Pulses equal, no cyanosis. Neurovascular intact. Full, normal range of motion. 08:25 ENT: TM's: erythema, that is moderate, on the left. Vital Signs: 08:11 BP 108 / 71; Pulse 82; Resp 18; Temp 98.7(O); Pulse Ox 98% ; Weight 52.16 kg; Height 5 tw5 ft. 1 in. (154.94 cm); Pain 0/10; 08:11 Body Mass Index 21.73 (52.16 kg, 154.94 cm) tw5 MDM: 08:15 Patient medically screened. ms3 08:25 Differential diagnosis: otitis media, acute otalgia. Data reviewed: vital signs, nurses ms3 notes, and as a result, I will discharge patient. Counseling: I had a detailed discussion with the patient and/or guardian regarding: the historical points, exam findings, and any diagnostic results supporting the discharge/admit diagnosis, the need for outpatient follow up, to return to the emergency department if symptoms worsen or persist or if there are any questions or concerns that arise at home. ED course: Discussed physical exam findings with patient. Patient follow-up Dr. Butt in 2 to 3 days. Patient understands agrees with plan. All questions were answered. Return precautions discussed include worsening symptoms, or any other concerns. Administered Medications: No medications were administered Disposition Summary: 04/25/22 08:15 Discharge Ordered Location: Home ms3 Condition: Stable ms3 Diagnosis - Acute serous otitis media, left ear ms3 Followup: ms3 - With: Dylan Butt DO - When: 2 - 3 days - Reason: Recheck today's complaints Discharge Instructions: - Discharge Summary Sheet ms3 - Otitis Media, Adult ms3 Forms: - Medication Reconciliation Form ms3 - Thank You Letter ms3 - Antibiotic Education ms3 - Prescription Opioid Use ms3 Prescriptions: - Amoxicillin 875 mg Oral Tablet - take 1 tablet by ORAL route every 12 hours for 10 days; 20 tablet; Refills: 0, ms3 Product Selection Permitted Signatures: Medardo Vasques DO DO ms3 Joaquin Delmy tw5
--- NOTE | 2022-04-25 08:16 | ER ---
Nurse's Notes [facility] Name: Delmy Lorenzo Age: 26 yrs Sex: Female : 1995 Arrival Date: 04/25/2022 Time: 08:07 Bed IW1 Private MD: Diagnosis: Acute serous otitis media, left ear Presentation: 04/25 08:11 Chief complaint: Patient states: "I have had an ear infection for several days now. It tw5 doesn't hurt anymore, I just cannot hear out of it.". Coronavirus screen: Vaccine status: Patient reports being unvaccinated. Ebola Screen: Patient negative for fever greater than or equal to 101.5 degrees Fahrenheit, and additional compatible Ebola Virus Disease symptoms Patient denies exposure to infectious person. Patient denies travel to an Ebola-affected area in the 21 days before illness onset. Initial Sepsis Screen: Does the patient meet any 2 criteria? No. Patient's initial sepsis screen is negative. Does the patient have a suspected source of infection? No. Patient's initial sepsis screen is negative. Risk Assessment: Do you want to hurt yourself or someone else? Patient reports no desire to harm self or others. Onset of symptoms was April 22, 2022. 08:11 Method Of Arrival: Ambulatory tw5 08:11 Acuity: SVETA 5 tw5 Triage Assessment: 08:12 General: Appears in no apparent distress. Behavior is calm, cooperative, appropriate tw5 for age. Pain: Denies pain. EENT: Tympanic membrane reddened on left ear. 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 - Social history:: Smoking status: Patient denies any tobacco usage or history of. Screenin:13 Abuse screen: Denies threats or abuse. Denies injuries from another. Nutritional tw5 screening: No deficits noted. Tuberculosis screening: No symptoms or risk factors identified. Fall Risk None identified. Assessment: 08:13 General: Appears in no apparent distress. Behavior is calm, cooperative, appropriate tw5 for age. Neuro: No deficits noted. Vital Signs: 08:11 BP 108 / 71; Pulse 82; Resp 18; Temp 98.7(O); Pulse Ox 98% ; Weight 52.16 kg; Height 5 tw5 ft. 1 in. (154.94 cm); Pain 0/10; 08:11 Body Mass Index 21.73 (52.16 kg, 154.94 cm) tw5 ED Course: 08:07 Patient arrived in ED. as 08:08 Medardo Vasques DO is Attending Physician. ms3 08:12 Triage completed. tw5 08:12 Arm band placed on. tw5 08:13 Patient has correct armband on for positive identification. tw5 08:13 No provider procedures requiring assistance completed. Patient did not have IV access tw5 during this emergency room visit. 08:14 Dylan Butt DO is Referral Physician. ms3 Administered Medications: No medications were administered Medication: 08:13 VIS not applicable for this client. tw5 Outcome: 08:13 Discharged to home ambulatory. tw5 08:13 Discharged to 08:13 Condition: good 08:13 Discharge instructions given to patient, Instructed on discharge instructions, follow up and referral plans. medication usage, Demonstrated understanding of instructions, follow-up care, medications. 08:15 Discharge ordered by MD. ms3 08:21 Patient left the ED. tw5 Signatures: Patrizia Beavers as Medardo Vasques DO DO ms3 Delmy Nuñez tw5
[2022-04-25 08:26] VITALS: BP 108/71; TEMP 98.7; O2SAT 98
== END 2022-04-25 08:21 | disposition home or self-care (01) ==
LOC: ER 08:05
DX: H65.02 Acute serous otitis media, left ear (principal)
CPT/HCPCS: 99281

== ENCOUNTER 2023-09-13 09:52 | Emergency (ER) | payer SELFPAY ==
[2023-09-13 10:33] LABS: Absolute Eosinophils 0.1 K/uL (0-0.5); Absolute Lymphocytes (CBC) 1.3 K/uL (0.7-4.9); Absolute Monocytes 0.3 K/uL (0.1-1.3); Basophils % 0.6 % (0-1.3); Eosinophils % 1.4 % (0-4.4); Hematocrit 37.6 % (36.0-45.0); Hemoglobin 12.8 g/dL (12.0-15.0); Lymphocytes % 23.4 % (15.3-44.8); MCH 30.8 pg (27.0-35.0); MCV 90.4 fL (80-100); MPV 7.6 fL (7.6-11.3); Monocytes % 4.6 % (3.3-12.3); Nucleated Red Blood Cells % 0.1 % (0-0); Platelets 297 thou/uL (152-406); RBC Red Blood Cell Count 4.15 M/uL (3.86-4.86); Red Cell Distribution Width 13.9 % (12.1-15.2)
[2023-09-13 10:43] LABS: Specific Gravity 1.024 (1.005-1.030)
[2023-09-13 10:50] LABS: Specific Gravity 1.024 (1.005-1.030); Transitional Epithelial <5 /HPF (None Seen); Urine Bacteria <20 /HPF (<20); Urine Bilirubin NEGATIVE (Negative); Urine Blood Negative (Negative); Urine Clarity Extremely Turbid (Clear); Urine Color Light-Yellow (Yellow); Urine Culture Reflex Order NOT NEEDED; Urine Glucose NEGATIVE (Negative); Urine Ketones NEGATIVE (Negative); Urine Microscopic Reflex YN ORDER UMIC; Urine Mucus 2+ /HPF (None Seen); Urine Nitrite NEGATIVE (Negative); Urine Protein TRACE (Negative); Urine RBC <5 /HPF (None Seen); Urine Urobilinogen Normal (Normal); Urine WBC <5 /HPF (<5); Urine pH 6.5 (5.0-7.0)
[2023-09-13 11:02] LABS: Anion Gap 8.6 mEq/L (5.0-15.0); Potassium 3.6 mEq/L (3.5-5.1)
--- NOTE | 2023-09-13 11:37 | RAD REPORT ---
EXAM DESCRIPTION: US - Transvaginal OB - 09/13/2023 11:12 am CLINICAL HISTORY: with abdominal pain COMPARISON: None. FINDINGS: The uterus measures 8 x 5 x 8 centimeters.. A sac is present within the endometrium measu ring 1.1 x 0.4 x 0.9 centimeters. A yolk sac not seen. No pole noted The uterus is retroverted Ovaries are normal in size and echotexture.. The right and left adnexa unremarkable No significant free fluid Prominent periuterine vascularity IMPRESSION: Small fluid collection within the endometrium may represent a gestational sac associated with a viable early intrauterine . Incomplete and even an ectopic can also result in this appearance. This all should be correlated clinically and with serial beta HCG levels. Followup endovaginal sonogram in 1 week re commended
--- NOTE | 2023-09-13 11:47 | ER ---
Nurse's Notes [facility] Name: Delmy Pereira Age: 28 yrs Sex: Female : 1995 Arrival Date: 09/13/2023 Time: 09:52 Bed 17 Private MD: Diagnosis: Encounter for supervision of normal first , first trimester Presentation: 09/12 10:03 Chief complaint: Patient states: Went to help center Wednesday. Approximately 8 ll1 weeks , but US was abnormal so they told her to come to ED to get checked further. G4, P3. No vaginal bleeding or pain, some nausea. Coronavirus screen: Client denies travel out of the [place] in the last 14 days. At this time, the client does not indicate any symptoms associated with coronavirus-19. Ebola Screen: Patient denies travel to an Ebola-affected area in the 21 days before illness onset. Initial Sepsis Screen: Does the patient meet any 2 criteria? No. Patient's initial sepsis screen is negative. Does the patient have a suspected source of infection? No. Patient's initial sepsis screen is negative. Risk Assessment: Do you want to hurt yourself or someone else? Patient reports no desire to harm self or others. Onset of symptoms was September 10, 2023. 10:03 Method Of Arrival: Ambulatory ll1 10:03 Acuity: SVETA 3 ll1 Triage Assessment: 10:06 General: Appears in no apparent distress. Behavior is calm, cooperative, appropriate ll1 for age, Reports Approximately 8 weeks . GI: Reports nausea. 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 - Infectious Disease History:: Denies. - Social history:: Smoking status: Patient denies any tobacco usage or history of. - Family history:: not pertinent. - Hospitalizations: : No recent hospitalization is reported. Screenin:42 [facility] ED Fall Risk Assessment (Adult) History of falling in the last 3 months, db including since admission No falls in past 3 months (0 pts) Confusion or Disorientation No (0 pts) Intoxicated or Sedated No (0 pts) Impaired Gait No (0 pts) Mobility Assist Device Used No (0 pt) Altered Elimination No (0 pt) Score/Fall Risk Level 0 - 2 = Low Risk Oriented to surroundings, Maintained a safe environment. Abuse screen: Denies threats or abuse. Denies injuries from another. Nutritional screening: No deficits noted. Tuberculosis screening: No symptoms or risk factors identified. Assessment: 10:10 Reassessment: Patient appears in no apparent distress at this time. Patient and/or db family updated on plan of care and expected duration. Pain level reassessed. Patient is alert, oriented x 3, equal unlabored respirations, skin warm/dry/pink. General: Appears in no apparent distress. comfortable, Behavior is calm, cooperative. Pain: Denies pain. Neuro: Level of Consciousness is awake, alert, obeys commands, Oriented to person, place, time, situation. 12:03 Visitor restriction implemented due to in-person visitations may lead to the db transmission of an infectious agent. Restricted visitation is valid for not more than 5 days unless renewed by the attending provider. Reassessment: Patient appears in no apparent distress at this time. Patient and/or family updated on plan of care and expected duration. Pain level reassessed. Patient is alert, oriented x 3, equal unlabored respirations, skin warm/dry/pink. General: Appears in no apparent distress. comfortable, Behavior is calm, cooperative. Cardiovascular: No deficits noted. Respiratory: Airway is patent Respiratory effort is even, unlabored, Respiratory pattern is regular, symmetrical. Vital Signs: 10:03 BP 129 / 82; Pulse 74; Resp 15; Temp 98.5; Pulse Ox 98% on R/A; Weight 52.16 kg; Height ll1 5 ft. 1 in. ; Pain 0/10; 10:53 BP 106 / 54 (/pedi); Pulse 68; Resp 18; Temp 98.5; Pulse Ox 99% on R/A; db 11:50 BP 101 / 64; Pulse 65; Resp 18; Temp 98.4; Pulse Ox 97% ; db 10:03 Body Mass Index 21.73 (52.16 kg, 154.94 cm) ll1 10:03 Pain Scale: Adult ll1 ED Course: 09:55 Patient arrived in ED. im 09:56 Solitario Woody MD is Attending Physician. rn 09:56 Arm band placed on Patient placed in an exam room, on a stretcher. ll1 10:05 Michelle Logan, RN is Primary Nurse. db 10:05 Triage completed. ll1 10:10 Initial lab(s) drawn, by me, sent to lab. Inserted saline lock: 20 gauge in right db antecubital area, using aseptic technique. Blood collected. 10:35 Urinalysis w/ reflexes Sent. jr12 10:35 Test, Urine Sent. jr12 10:39 US Transvaginal Ob In Process Unspecified. EDMS 10:40 Patient moved back from ultrasound. db 12:03 Patient has correct armband on for positive identification. Bed in low position. Call db light in reach. Side rails up X 1. Provided Education on: FOLLOWUP. Warm blanket given. 12:03 No provider procedures requiring assistance completed. IV discontinued, intact, db bleeding controlled, No redness/swelling at site. Administered Medications: No medications were administered Medication: 12:02 VIS not applicable for this client. db Outcome: 11:46 Discharge ordered by . rn 12:03 Discharged to home ambulatory, db 12:03 Condition: stable 12:03 Discharge instructions given to patient, Instructed on discharge instructions, follow up and referral plans. 12:05 Patient left the ED. db Signatures: Dispatcher [employer] EDMS Solitario Woody MD MD rn Lewis, Lynsay RN RN 1 Michelle Logan, RN RN db Rebeca Dinero Jess jr12 Corrections: (The following items were deleted from the chart) 12:04 12:03 Discharge instructions given to patient, Instructed on discharge instructions, db follow up and referral plans. Prescriptions given X 1, db
--- NOTE | 2023-09-13 11:47 | EDPHYS ---
Physician Documentation [facility] Name: Delmy Pereira Age: 28 yrs Sex: Female : 1995 Arrival Date: 09/13/2023 Time: 09:52 Bed 17 Private MD: ED Physician Solitario Woody HPI: 09/12 10:04 This 28 yrs old Female presents to ER via Unassigned with complaints of Blood work for rn . 10:10 The patient presents to the emergency department with. course: care: rn at a clinic. Previous pregnancies: in previous pregnancies patient has had. Patient reports sent her for further evaluation as she had an outpatient ultrasound that was not definitive for . Patient reports LMP 2 months ago. Has had previous pregnancies without complication. Denies vaginal bleeding or discharge. No abdominal pain. No urinary symptoms.. 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 - Infectious Disease History:: Denies. - Social history:: Smoking status: Patient denies any tobacco usage or history of. - Family history:: not pertinent. - Hospitalizations: : No recent hospitalization is reported. ROS: 10:10 Constitutional: Negative for fever, chills, and weight loss, Cardiovascular: Negative rn for chest pain, palpitations, and edema, Respiratory: Negative for shortness of breath, cough, wheezing, and pleuritic chest pain, Abdomen/GI: Negative for abdominal pain. Back: Negative for injury and pain, : Negative for injury, bleeding, discharge, and swelling, Exam: 10:10 Constitutional: This is a well developed, well nourished patient who is awake, alert, rn and in no acute distress. Cardiovascular: Regular rate and rhythm. No pulse deficits. Abdomen/GI: Soft, nontender Vital Signs: 10:03 BP 129 / 82; Pulse 74; Resp 15; Temp 98.5; Pulse Ox 98% on R/A; Weight 52.16 kg; Height ll1 5 ft. 1 in. ; Pain 0/10; 10:53 BP 106 / 54 (/pedi); Pulse 68; Resp 18; Temp 98.5; Pulse Ox 99% on R/A; db 11:50 BP 101 / 64; Pulse 65; Resp 18; Temp 98.4; Pulse Ox 97% ; db 10:03 Body Mass Index 21.73 (52.16 kg, 154.94 cm) ll1 10:03 Pain Scale: Adult ll1 MDM: 09:56 Patient medically screened. rn 11:45 Differential diagnosis: ectopic . Differential diagnosis: Early . rn Data reviewed: vital signs, nurses notes. Data reviewed: lab test result(s), radiologic studies, ultrasound, and as a result, I will discharge patient. Counseling: I had a detailed discussion with the patient and/or guardian regarding the historical points, exam findings, and any diagnostic results supporting the discharge/admit diagnosis, lab results, radiology results, the need for outpatient follow up, to return to the emergency department if symptoms worsen or persist or if there are any questions or concerns that arise at home. Special discussion: I discussed with the patient/guardian in detail that at this point there is no indication for admission to the hospital. It is understood, however, that if the symptoms persist or worsen the patient needs to return immediately for re-evaluation. Based on the history and exam findings, there is no indication for further emergent testing or inpatient evaluation. I discussed with the patient/guardian the need to see the OB Gyne specialist for further evaluation of the symptoms. ED course: No acute findings and ultrasound. Appears to be early gestational sac. Beta quantitative in the 7000's and Rh+. Denies any abdominal pain or vaginal bleeding thus suspect early . Will discharge home with OB follow-up. I have personally reviewed all of the results, including but not limited to blood tests and imaging deemed necessary to safely discharge this patient at this time. All results given to and printed out for patient. I personally went over all the results with the patient and answered all questions. Patient will follow-up with PCP and or specialist as discussed. Return precautions given and understood.. 09/12 10:03 Order name: Abo/rh Typing; Complete Time: 11: rn 09/12 10:03 Order name: Basic Metabolic Panel; Complete Time: 11: rn 09/12 10:03 Order name: CBC with Diff; Complete Time: : rn 09/12 10:03 Order name: Test, Urine; Complete Time: 11: rn 09/12 10:03 Order name: Quantitative Hcg; Complete Time: 11:07 rn 09/12 10:03 Order name: Urinalysis w/ reflexes; Complete Time: 11:03 rn 09/12 10:03 Order name: US Transvaginal Ob; Complete Time: 11:45 rn 09/12 10:03 Order name: IV Saline Lock; Complete Time: 10:40 rn 09/12 10:03 Order name: Labs collected and sent; Complete Time: 10:40 rn 09/12 10:03 Order name: NPO; Complete Time: 10:40 rn Administered Medications: No medications were administered Disposition Summary: 09/13/23 11:46 Discharge Ordered Notes: Location: Home rn Problem: new rn Symptoms: have improved rn Condition: Stable rn Diagnosis - Encounter for supervision of normal first , first trimester rn Followup: rn - With: Private Physician - When: As needed - Reason: Recheck today's complaints, Re-evaluation by your physician Discharge Instructions: - Discharge Summary Sheet rn - First Trimester of , [id number] rn Forms: - Medication Reconciliation Form rn - Thank You Letter rn - Antibiotic rn acute - Prescription Opioid Use rn - Patient Portal Instructions rn - Leadership Thank You Letter rn Signatures: Dispatcher [employer] EDSolitario Alvarenga MD MD rn Lewis, Lynsay, RN RN ll1 Michelle Logan RN RN db Corrections: (The following items were deleted from the chart) 10:04 10:04 ABO/RH TYPING+BB.LAB.BRZ ordered. EDMS EDMS 10:04 10:04 BASIC METABOLIC PANEL+C.LAB.BRZ ordered. EDMS EDMS 10:04 10:04 CBC+H.LAB.BRZ ordered. EDMS EDMS 10:04 10:04 Test, Urine+UC.LAB.BRZ ordered. EDMS EDMS 10:04 10:04 QUANTITATIVE HCG+C.LAB.BRZ ordered. EDMS EDMS 10:04 10:04 Urinalysis+U.LAB.BRZ ordered. EDMS EDMS
[2023-09-13 12:39] VITALS: BP 101/64; TEMP 98.4; O2SAT 97
== END 2023-09-13 12:05 | disposition home or self-care (01) ==
LOC: ER 09:52
DX: Z34.01 Encounter for supervision of normal first pregnancy, first trimester (principal)
CPT/HCPCS: 36415; 76817; 80048; 81001; 81025; 84702; 85025; 86900; 86901; 99284